=== PATIENT | male | born 2000 | race African-American/Black ===

== ENCOUNTER 2024-01-13 12:37 | Outpatient (REF) | payer OTHER, SELFPAY | END 2024-01-13 12:38 | disposition home or self-care (01) | LOC: CF 12:37 | DX: S62.304A Unspecified fracture of fourth metacarpal bone, right hand, initial encounter for closed fracture (principal) | CPT/HCPCS: 99202 ==

== ENCOUNTER 2024-01-13 14:11 | Outpatient (REF) | payer OTHER, SELFPAY ==
--- NOTE | ~2024-01-13 | XR_ITS ---
EXAMINATION: XR HAND, RIGHT CLINICAL INFORMATION: Pain in the right hand. Attention fourth metacarpal COMPARISON: Prior examination 01/02/2024 TECHNIQUE: PA, lateral, and oblique views of the right hand. FINDINGS: Redemonstration of the mildly displaced oblique fracture of the proximal diametaphysis of the fourth metacarpal. Fracture does not appear to extend to the proximal articular surface. No apparent change in alignment allowing for slight differences in projection. No definite callus. The remaining bones joints and soft tissues are normal. XR/XR hand RT min 3V IMPRESSION: No change in alignment of the mildly displaced fourth metacarpal fracture. No definite callus formation. Electronically signed by: Kj Grajeda MD 01/19/2024 08:02 PM EDT RP
== END 2024-01-13 14:12 | disposition home or self-care (01) ==
LOC: HO.XRAY 14:11
DX: M79.641 Pain in right hand (principal)
CPT/HCPCS: 73130

== ENCOUNTER 2024-01-13 14:30 | Outpatient (AMB) | payer OTHER, SELFPAY ==
--- NOTE | 2024-01-13 14:33 | A.OFFVIS_ITS ---
Vital Signs 01/13/24 14:42 Height 5 ft 7 in Weight 185 lb BMI 29.0 Intake Visit Reasons: muscle fascia and tendon at wrist right hand Intake Note: Bob is a 23 yo right hand dominant male who presents today for a urgent care follow up evaluation regarding a right wrist sprain, DOI 12/31/23. Patient states pain is located mainly on the dorsal aspect of the right hand. Reports new onset of numbness since the injury. Patient reports limited ROM on the right ring finger. Denies prior injuries or surgeries to the right hand. Per patient, he is currently out of work. Allergies No Known Allergies Allergy (Verified 01/13/24 14:42) HPI HPI muscle fascia and tendon at wrist right hand: Details: Patient is a 23-year-old male who presents for urgent care follow-up of right 4th metacarpal fracture, date of injury 12/31/2023. On that date, the patient reports that he was significantly intoxicated when he fell and hit his hand off of a brick wall, and he immediately began to experience significant pain and swelling in the right hand and wrist. Patient states that he was evaluated in the urgent Care ?a few days later , where they diagnosed him with a wrist sprain but got x-rays. X-rays taken then revealed a minimally displaced fracture of the 4th metacarpal of the right hand, so he was placed in a splint and sent for follow-up with orthopedics. Today, the patient reports that he is still experiencing discomfort in the area of the fracture in the right hand, but this is improved significantly since date of injury. Patient reports that he has been wearing the splint provided to him at urgent care, however the splint ?fell apart a little bit? over the course of the past week. Patient does report occasional tingling in the right ring finger, but reports that he has normal sensation.. No other acute complaints or concerns at this time. [facility] Social History (Updated 01/13/24 @ 14:45 by QUYNH Sanz) Current occupational status: employed Current occupation: rt handed, works doing insulation Physical Exam Vital Signs: BMI result Body Mass Index 29.0 Extrem Other: Patient is alert, oriented, and in no acute distress. Neuro: Patient reports normal sensation of the tips of all digits of the right hand at this time Vascular: Cap refill brisk Pain: Patient reports tenderness to palpation over the 4th metacarpal base and shaft in the area of the fracture Patient reports no tenderness to palpation of any other metacarpals No anatomical snuffbox tenderness No other tenderness to palpation of the right hand and wrist noted ROM: With encouragement patient is able to make a closed fist Skin: No lacerations or abrasions. General: No ecchymosis, erythema, or evidence of infection. Psych: Appears grossly normal Affect normal Attitude cooperative Results Reviewed Results Reviewed: X-rays obtained in the office today and independently reviewed by me, Rogers Fink PA-C, demonstrate minimally displaced oblique fracture of the right 4th metacarpal base and shaft. Assessment & Plan Assessment & Plan (1) Fracture of fourth metacarpal bone of right hand: Code(s): S62.304A - Unspecified fracture of fourth metacarpal bone, right hand, initial encounter for closed fracture Category: Medical Plan 1. right 4th metacarpal fracture, minimally displaced Date of injury 12/31/2023 Patient is discussed with Dr. Arguello, who was not available in clinic to see the patient today, and a collaborative treatment plan was formed: The patient is educated about his injury and the typical recovery course At this time, the patient is informed that we feel he can be treated with conservative measures to the minimally displaced nature of his fracture The patient is given a Velcro wrist splint to be worn like a cast, only removing for bathing Patient is also to have the middle and ring fingers rey-taped at all times for extra stability Patient is advised that he has a 1 lb weight restriction in his right hand The patient reports that his job will likely not be able to date this 1 lb weight restriction, so he is given off of work until follow-up Patient is amenable to this plan Patient will follow-up in 2 weeks with repeat x-rays, sooner with any acute concerns Orders: Orders XR hand RT min 3V 01/13/24 M79.641 - Pain in right hand Coding Level of Care Code New Pt Level 3 (62880) Diagnoses Fracture of fourth metacarpal bone of right hand S62.304A
[2024-01-13 14:42] VITALS: BMI 29.0
== END 2024-01-13 15:30 | disposition home or self-care (01) ==
DX: S62.304A Unspecified fracture of fourth metacarpal bone, right hand, initial encounter for closed fracture (principal); W19.XXXA Unspecified fall, initial encounter
CPT/HCPCS: 99203

== ENCOUNTER 2024-01-30 10:24 | Outpatient (REF) | payer OTHER, SELFPAY ==
--- NOTE | ~2024-01-30 | XR_ITS ---
EXAMINATION: XR HAND, RIGHT CLINICAL INFORMATION: Right hand pain. Attention 4th metacarpal. COMPARISON: 01/13/2024. TECHNIQUE: PA, lateral, and oblique views of the right hand. FINDINGS: Past healed bone formation is evident at the 4th metacarpal shaft fracture, without significant displacement. No additional fractures. Bone mineralization is normal. Joint spaces are normal. Soft tissues are unremarkable. XR/XR hand RT min 3V IMPRESSION: Healing 4th metacarpal shaft fracture. Electronically signed by: Louis Gary MD 02/05/2024 05:18 PM EDT
== END 2024-01-30 10:25 | disposition home or self-care (01) ==
LOC: HO.HOSX 10:24
DX: M79.641 Pain in right hand (principal); S62.304A Unspecified fracture of fourth metacarpal bone, right hand, initial encounter for closed fracture
CPT/HCPCS: 73130; 99212

== ENCOUNTER 2024-01-30 10:46 | Outpatient (AMB) | payer OTHER, SELFPAY ==
--- NOTE | 2024-01-30 11:01 | MHC.OFFVIS ---
Vital Signs 01/30/24 11:08 Height 5 ft 7 in Weight 185 lb BMI 29.0 Handedness Right Intake Visit Reasons: OV muscle fascia and tendon at wrist right hand Intake Note: Bob is a 23 year old right hand dominant male who presents today with his girlfriend for a follow up visit for his right hand fracture of fourth metacarpal bone s/p fall DOI: 12/31/2023. Patient reports he has been utilizing his Velcro wrist splint as a cast. He has been using the rey tape but not daily. He states he feels his had is doing better and has refrained from lifting over 1 pound. He is able to make a closed fist without pain, reports no stiffness or tightness when this is done. Denies numbness and tingling. Accompanied by: Significant Other Allergies No Known Allergies Allergy (Verified 01/30/24 11:11) HPI HPI OV muscle fascia and tendon at wrist right hand: Details: Patient is a 23-year-old male who presents for 2 week follow-up status post fracture of the 4th metacarpal of the right hand. Today, the patient reports that he is feeling very well, and has no pain in his right hand at this time. The patient does also state that he wears his Velcro wrist splint and rey tape ?most of the time?, but of note he is not wearing these today. Patient denies any numbness or tingling in the right hand. no other acute complaints or concerns at this time [facility], [facility] Social History Alcohol intake: current Alcohol intake frequency: a few times a month Substance Use Type: Marijuana Current occupational status: employed Current occupation: rt handed, works doing insulation Physical Exam Vital Signs: BMI result Body Mass Index 29.0 Extrem Other: Patient is alert, oriented, and in no acute distress. Neuro: Patient reports normal sensation of the tips of all digits of the right hand at this time Vascular: Cap refill brisk Pain: No anatomical snuffbox tenderness No tenderness to palpation of the right hand and wrist noted Range of motion of the right hand and wrist painless ROM: Patient is able to make a closed fist and extend all digits of the right hand fully without difficulty Skin: No lacerations or abrasions. General: Some very mild edema noted over the 4th metacarpal of the right hand No ecchymosis, erythema, or evidence of infection. Psych: Appears grossly normal Affect normal Attitude cooperative Results Reviewed Results Reviewed: X-rays obtained in the office today and independently reviewed by me, Rogers Fink PA-C, demonstrate minimally displaced fracture of the right 4th metacarpal shaft, with evidence of interval bony healing. Assessment & Plan Assessment & Plan (1) Fracture of fourth metacarpal bone of right hand: Code(s): S62.304A - Unspecified fracture of fourth metacarpal bone, right hand, initial encounter for closed fracture Category: Medical Plan 1. right 4th metacarpal fracture, minimally displaced Date of injury 12/31/2023 The patient is educated about his injury and the typical recovery course At this time, the patient is informed that we feel he can continue to be treated with conservative measures to the minimally displaced nature of his fracture and evidence of healing on x-ray Patient is informed that he can continue to wear the Velcro wrist splint with daytime activities, but does not need to wear it at all times. Patient is also to continue to have the middle and ring fingers rey-taped at all times for extra stability Patient is advised that he has a 2 lb weight restriction in his right hand The patient inquires about return to work, and I told him that he will be cleared for return to work with light or desk duty with a 2 lb weight restriction in his right hand. Patient is amenable to this plan Patient will follow-up in 4 weeks with repeat x-rays, sooner with any acute concerns Orders: Orders XR hand RT min 3V Today M79.641 - Pain in right hand Coding Level of Care Code Global (96909) Diagnoses Fracture of fourth metacarpal bone of right hand S62.304A
[2024-01-30 11:08] VITALS: BMI 29.0
== END 2024-01-30 11:22 | disposition home or self-care (01) ==
LOC: HO.HOS 10:46
DX: S62.304A Unspecified fracture of fourth metacarpal bone, right hand, initial encounter for closed fracture (principal)
CPT/HCPCS: 99213

== ENCOUNTER 2024-02-27 10:15 | Outpatient (AMB) | payer OTHER, SELFPAY ==
--- NOTE | 2024-02-27 10:17 | A.OFFVIS_ITS ---
Vital Signs 02/27/24 10:18 Height 5 ft 7 in Weight 185 lb BMI 29.0 Handedness Right Intake Visit Reasons: OV - FX of 4th metacarpal bone of right hand Intake Note: Bob is a 23 year old right hand dominant male who presents today with his girlfriend for a follow up visit for his right hand fracture of fourth metacarpal bone s/p fall DOI: 12/31/2023. Patient reports his hand is doing well. He says he works on moving his fingers around at home and has been trying to avoid anything heavier than 2 pounds in the right hand. Denies numbness and tingling. Allergies No Known Allergies Allergy (Verified 02/27/24 10:18) HPI HPI OV - FX of 4th metacarpal bone of right hand: Details: Patient is a 23-year-old male who presents for 4 week follow-up of 4th metacarpal fracture of the right hand, date of the injury 12/31/2023. Today, the patient reports he is feeling very well, and is experiencing no pain. The patient states that he has not been wearing the Velcro wrist splint much, as he has not been doing much daytime activity. The patient states that he is nervous about any potential return to work, as he is very scared about any potential re- injury. Patient denies any numbness or tingling in the right hand. No other acute complaints or concerns at this time. [facility] Social History Alcohol intake: current Alcohol intake frequency: a few times a month Substance Use Type: Marijuana Current occupational status: employed Current occupation: rt handed, works doing insulation Physical Exam Vital Signs: BMI result Body Mass Index 29.0 Extrem Other: Patient is alert, oriented, and in no acute distress. Neuro: Patient reports normal sensation of the tips of all digits of the right hand at this time Vascular: Cap refill brisk Pain: No anatomical snuffbox tenderness No tenderness to palpation of the right hand and wrist noted Range of motion of the right hand and wrist painless ROM: Patient is able to make a closed fist and extend all digits of the right hand fully without difficulty Skin: No lacerations or abrasions. General: Some very mild edema noted over the 4th metacarpal of the right hand No ecchymosis, erythema, or evidence of infection. Psych: Appears grossly normal Affect normal Attitude cooperative Results Reviewed Results Reviewed: X-rays obtained in the office today and independently reviewed by me, Rogers Fink PA-C, demonstrate minimally displaced fracture of the right 4th metacarpal shaft, with evidence of interval bony healing. Assessment & Plan Assessment & Plan (1) Fracture of fourth metacarpal bone of right hand: Code(s): S62.304A - Unspecified fracture of fourth metacarpal bone, right hand, initial encounter for closed fracture Category: Medical Plan 1. right 4th metacarpal fracture, minimally displaced Date of injury 12/31/2023 The patient is educated about his injury and the typical recovery course At this time, the patient is informed that we feel he can continue to be treated with conservative measures to the minimally displaced nature of his fracture and evidence of healing on x-ray Patient is informed that he can continue to wear the Velcro wrist splint with daytime activities, but does not need to wear it at all times. Patient is also to continue to have the middle and ring fingers rey-taped at all times for extra stability Patient is advised that he has a 2 lb weight restriction in his right hand The patient's job has an informed him that he can not return to work on a light duty basis with a 2 lb weight restriction in his hand, so he will be out of work until the next 3-4 weeks at follow-up appointment, at which point if he is still healing well he will be able to be cleared for return to work Patient is amenable to this plan Patient will follow-up in 3-4 weeks with repeat x-rays if needed, sooner with any acute concerns Orders: Orders XR hand RT min 3V Today M79.641 - Pain in right hand Coding Level of Care Code Global (37942) Diagnoses Fracture of fourth metacarpal bone of right hand S62.304A
[2024-02-27 10:18] VITALS: BMI 29.0
== END 2024-02-27 11:24 | disposition home or self-care (01) ==
DX: S62.304A Unspecified fracture of fourth metacarpal bone, right hand, initial encounter for closed fracture (principal)
CPT/HCPCS: 99213

== ENCOUNTER 2024-02-27 10:15 | Outpatient (REF) | payer OTHER, SELFPAY ==
--- NOTE | ~2024-02-27 | XR_ITS ---
EXAMINATION: XR HAND RIGHT 4 VIEWS CLINICAL INFORMATION: Pain in right hand M79.641. COMPARISON: XR Right Hand 01/30/2024 TECHNIQUE: Four views of the right hand. FINDINGS: No acute visible fracture or dislocation. Chronic fracture deformity of fourth metacarpal. Joint space and alignment are maintained. Soft tissues are unremarkable. XR/XR hand RT min 3V IMPRESSION: 1. No acute visible fracture or dislocation. 2. Chronic fracture deformity of fourth metacarpal. Electronically signed by: Di Fontana MD 05/08/2024 02:30 PM LEILA DOUGHERTY
== END 2024-02-27 10:16 | disposition home or self-care (01) ==
LOC: HO.HOSX 10:15
DX: M79.641 Pain in right hand (principal); S62.304D Unspecified fracture of fourth metacarpal bone, right hand, subsequent encounter for fracture with routine healing
CPT/HCPCS: 73130; 99212

== ENCOUNTER 2024-03-19 09:11 | Outpatient (REF) | payer OTHER, SELFPAY | END 2024-03-19 09:12 | disposition home or self-care (01) | LOC: HO.HOSX 09:11 | DX: S62.304A Unspecified fracture of fourth metacarpal bone, right hand, initial encounter for closed fracture (principal) | CPT/HCPCS: 73130; 99212 ==

== ENCOUNTER 2024-03-19 10:10 | Outpatient (AMB) | payer OTHER, SELFPAY ==
--- NOTE | 2024-03-19 10:19 | MHC.OFFVIS ---
Vital Signs 03/19/24 10:20 Height 5 ft 7 in Weight 185 lb BMI 29.0 Handedness Right Intake Visit Reasons: OV - FX of 4th metacarpal bone of right hand Intake Note: Bob is a 23 year old right hand dominant male who presents today with his girlfriend for a follow up visit for his right hand fracture of fourth metacarpal bone s/p fall DOI: 12/31/2023. Patient reports he has been rey taping as advised and believes this has been helping him. He has not been heavy lifting he says. Patient has no concerns at this time. He would like to discuss work status today. Allergies No Known Allergies Allergy (Verified 03/19/24 10:21) HPI HPI OV - FX of 4th metacarpal bone of right hand: Details: Patient is a 23-year-old male who presents for follow-up evaluation of minimally displaced spiral fracture of the 4th metacarpal shaft of the right hand, date of injury 12/31/2023. Today, the patient reports that he is feeling very well, and experiences no discomfort in his right hand. Patient denies any numbness or tingling of the right hand. Patient inquires about a potential return to work at this time, as he feels he has gone on to heal very well. No other acute complaints or concerns at this time. [facility] Social History Alcohol intake: current Alcohol intake frequency: a few times a month Substance Use Type: Marijuana Current occupational status: employed Current occupation: rt handed, works doing insulation Review of Systems Const All systems reviewed & are unremarkable except as noted in HPI and below Physical Exam Vital Signs: BMI result Body Mass Index 29.0 Extrem Other: Patient is alert, oriented, and in no acute distress. Neuro: Patient reports normal sensation of the tips of all digits of the right hand at this time Vascular: Cap refill brisk Pain: No anatomical snuffbox tenderness No tenderness to palpation of the right hand and wrist noted Range of motion of the right hand and wrist painless ROM: Patient is able to make a closed fist and extend all digits of the right hand fully without difficulty Skin: No lacerations or abrasions. General: No ecchymosis, erythema, or evidence of infection. Psych: Appears grossly normal Affect normal Attitude cooperative Results Reviewed Results Reviewed: X-rays obtained in the office today and independently reviewed by me, Rogers Fink PA-C, demonstrate minimally displaced fracture of the right 4th metacarpal shaft, with evidence of interval bony healing. Assessment & Plan Assessment & Plan (1) Fracture of fourth metacarpal bone of right hand: Code(s): S62.304A - Unspecified fracture of fourth metacarpal bone, right hand, initial encounter for closed fracture Category: Medical Plan 1. 4th metacarpal shaft fracture Date of injury 12/31/2023 Patient appears to be recovering well from his injury Patient is educated about the typical recovery course This time, due to good evidence of strong healing and being almost 3 months from her from injury, cleared to return to work with no restrictions Patient is educated that if he notices any increased pain or swelling in the area of his injury, he should stop working and call to be re-evaluated Patient understands this and is amenable to this plan Patient will follow-up as needed with any acute Orders: Orders XR hand RT min 3V Today M79.641 - Pain in right hand Coding Level of Care Code Global (78042) Diagnoses Fracture of fourth metacarpal bone of right hand S62.304A
[2024-03-19 10:20] VITALS: BMI 29.0
== END 2024-03-19 10:26 | disposition home or self-care (01) ==
DX: S62.324A Displaced fracture of shaft of fourth metacarpal bone, right hand, initial encounter for closed fracture (principal)
CPT/HCPCS: 99212